=== PATIENT | female | born 1970 | race Caucasian/White ===

== ENCOUNTER 2017-08-14 12:21 | Outpatient (CLI) | END 2017-08-14 12:22 | disposition short-term general hospital (02) | LOC: AMBL 12:21 | PROVIDERS: ATTEND Internal Medicine | DX: S89.91XA Unspecified injury of right lower leg, initial encounter (principal); W23.0XXA Caught, crushed, jammed, or pinched between moving objects, initial encounter ==

== ENCOUNTER 2018-04-26 11:35 | Outpatient (CLI) | END 2018-04-26 11:50 | disposition short-term general hospital (02) | LOC: AMBL 11:35 | PROVIDERS: ATTEND Internal Medicine | DX: R06.02 Shortness of breath (principal); R60.0 Localized edema; R00.0 Tachycardia, unspecified; F41.9 Anxiety disorder, unspecified ==

== ENCOUNTER 2018-12-02 15:03 | Outpatient (CLI) | END 2018-12-02 15:16 | disposition short-term general hospital (02) | LOC: AMBL 15:03 | PROVIDERS: ATTEND Emergency Medicine | DX: S99.911A Unspecified injury of right ankle, initial encounter (principal); M79.89 Other specified soft tissue disorders; W19.XXXA Unspecified fall, initial encounter; M54.9 Dorsalgia, unspecified; G89.29 Other chronic pain ==

== ENCOUNTER 2018-12-26 03:19 | Outpatient (CLI) | END 2018-12-26 03:42 | disposition short-term general hospital (02) | LOC: AMBL 03:19 | PROVIDERS: ATTEND Emergency Medicine | DX: R06.03 Acute respiratory distress (principal); R05 Cough; R00.0 Tachycardia, unspecified; R07.89 Other chest pain; E66.9 Obesity, unspecified; R40.2411 Glasgow coma scale score 13-15, in the field [EMT or ambulance] ==

== ENCOUNTER 2019-06-30 16:37 | Outpatient (CLI) | END 2019-06-30 16:38 | disposition home or self-care (01) | LOC: AMBL 16:37 | PROVIDERS: ATTEND Emergency Medicine | DX: R06.9 Unspecified abnormalities of breathing (principal); M79.89 Other specified soft tissue disorders ==